=== PATIENT | male | born 1995 | race Caucasian/White ===

== ENCOUNTER 2016-06-25 19:58 | Emergency (ER) | payer OTHER ==
[2016-06-26 04:08] LABS: RED BLOOD COUNT 4.84 M/UL (4.20-5.50); WHITE BLOOD COUNT 9.6 K/UL (4.5-11.0)
[2016-06-26 04:31] LABS: BUN/CREATININE RATIO 15 (0-10)
== END 2016-06-26 11:24 ==
LOC: ER1 19:58
PROVIDERS: Specialist/Technologist Athletic Trainer
DX: T81.4XXA Infection following a procedure, initial encounter (principal); L02.213 Cutaneous abscess of chest wall; L03.313 Cellulitis of chest wall; I25.2 Old myocardial infarction; I10 Essential (primary) hypertension; E78.00 Pure hypercholesterolemia, unspecified; F17.210 Nicotine dependence, cigarettes, uncomplicated; Z95.810 Presence of automatic (implantable) cardiac defibrillator; Z88.2 Allergy status to sulfonamides; Z79.82 Long term (current) use of aspirin; Z79.899 Other long term (current) drug therapy; Z95.5 Presence of coronary angioplasty implant and graft
CPT/HCPCS: 71010; 80053; 85025; 86140; 87040; 87070; 87077; 87186; 87205; 93005; 96374; 99284; J7030